=== PATIENT | male | born 1945 | race Caucasian/White ===

== ENCOUNTER 2020-04-24 01:11 | Outpatient (CLI) | payer MEDICARE, SELFPAY ==
[2020-04-24 18:29] LABS: SARS-CoV-2 RNA PCR Negative
== END 2020-04-24 01:12 | disposition home or self-care (01) ==
LOC: ANHCOVIDDT 01:12
PROVIDERS: PCP Family Medicine; Visit Provider Internal Medicine Gastroenterology
DX: Z01.812 Encounter for preprocedural laboratory examination (principal); Z11.59 Encounter for screening for other viral diseases
CPT/HCPCS: 87635; C9803; U0003

== ENCOUNTER 2020-04-26 04:13 | Day surgery (SDC) | payer MEDICARE, SELFPAY ==
[2020-04-17 12:36] VITALS: BMI 25.1
[2020-04-26 06:58] VITALS: BP 147/82; PULSE 68; RESP 22; TEMP 36.4; O2SAT 98; BMI 26.1
[2020-04-26] MEDS: LACTATED RINGERS 1,000 ML 150 ML IV CONT (07:22)
[2020-04-26 07:23] LABS: Glucose Point of Care 142 (65-105)
--- NOTE | 2020-04-26 07:32 | WPDANESEPPF ---
Anes - Initial Pre Proc Eval Procedure: Operation Date: 04/26/20 08:00 Proposed Procedures p Esophagogastroduodenoscopy - Feliciano Cortes MD Date/Time: 04/26/20 07:32 Surgeon: Feliciano Cortes MD Pre Op Diagnosis: barretts esophagus Patient Data Age: 75 Gender: M Height: 5 ft 8 in Weight: 78 kg Last Vital Signs Temp 97.6 F 04/26/20 06:58 Pulse 68 04/26/20 06:58 Resp 22 H 04/26/20 06:58 BP 147/82 H 04/26/20 06:58 Pulse Ox 98 04/26/20 06:58 Allergies Allergy/AdvReac Type Severity Reaction Status Date / Time No Known Allergies Allergy Verified 04/26/20 06:56 Home Medications Medication Instructions Recorded Confirmed Type amlodipine 5 mg PO DAILY 04/17/20 04/17/20 History indapamide 1.25 mg PO DAILY 04/17/20 04/17/20 History lisinopril 40 mg PO DAILY 04/17/20 04/17/20 History metformin 850 mg PO DAILY 04/17/20 04/17/20 History omeprazole 20 mg PO DAILY 04/17/20 04/17/20 History sertraline 50 mg PO DAILY 04/17/20 04/17/20 History simvastatin 10 mg PO DAILY 04/17/20 04/17/20 History tamsulosin 0.4 mg PO DAILY 04/17/20 04/17/20 History Laboratory Tests 04/26/20 07:20 POC Capillary Glucose 142 mg/dl H mg/dl (65-105) Patient hx anesthesia problems: none Family hx anesthesia problems: none PENDING SALE TO [facility] Past Medical History Medical History (Updated 04/26/20 @ 07:31 by Brendan Blankenship MD) Diabetes GERD (gastroesophageal reflux disease) Hyperlipidemia Hypertension Social History Social History Living arrangements: with family Anes - Eval Final PreProcedure Day of Procedure 04/26/20 07:32 Patient weight: overweight Heart: regular rate and rhythm Lungs: clear to auscultation Airway: Mallampati scale class II Neurological: alert and oriented Last oral intake: >/= 8 hours ASA classification: III Emergent: no Anesthetic plan: proceed Anesthesia type and monitoring: general GIVS and standard monitoring Informed Consent: The patient's anesthetic plan and its attendant risks and benefits were discussed with the patient/family/POA. Questions were solicited and answers provided to the satisfaction of the patient/family/POA.
--- NOTE | 2020-04-26 07:51 | WPDGICN ---
Assessment and Plan Assessment and plan (1) Tristan's esophagus: Code(s): K22.70 - Tristan's esophagus without dysplasia Status: Acute Assessment and Plan: Patient with stable Tristan's esophagus. Patient maintained on omeprazole 20 mg p.o. daily with good results. Plan is for surveillance EGD now on at 3 year intervals. (2) GERD (gastroesophageal reflux disease): Code(s): K21.9 - Gastro-esophageal reflux disease without esophagitis Status: Acute GI Consult Note Consult date/time: 04/26/20 07:51 HPI: uGs Owen Jr. is a 75 year old male Seen in evaluation at the request of Dr. Maxx Trevizo. Patient has a known history of GE reflux and Tristan's esophagus. He presents today for surveillance EGD. He states he has no heartburn as long as he takes PPI as prescribed. He denies dysphagia. He has had no weight loss or bleeding. Family history is noncontributory. 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 Review of Systems Review of Systems: All systems reviewed & are unremarkable except as noted in HPI and below PMFSH Past Medical History Medical History (Updated 04/26/20 @ 07:54 by Feliciano Cortes MD) Diabetes GERD (gastroesophageal reflux disease) Hyperlipidemia Hypertension Social History Social History Living arrangements: with family Meds Home Medications and Allergies Home Medications Medication Instructions Recorded Confirmed Type amlodipine 5 mg PO DAILY 04/17/20 04/17/20 History indapamide 1.25 mg PO DAILY 04/17/20 04/17/20 History lisinopril 40 mg PO DAILY 04/17/20 04/17/20 History metformin 850 mg PO DAILY 04/17/20 04/17/20 History omeprazole 20 mg PO DAILY 04/17/20 04/17/20 History sertraline 50 mg PO DAILY 04/17/20 04/17/20 History simvastatin 10 mg PO DAILY 04/17/20 04/17/20 History tamsulosin 0.4 mg PO DAILY 04/17/20 04/17/20 History Allergies Allergy/AdvReac Type Severity Reaction Status Date / Time No Known Allergies Allergy Verified 04/26/20 06:56 Vital Signs Vital Signs - 24 hr 04/26/20 06:58 Temperature 97.6 F Pulse Rate 68 Respiratory Rate 22 H Blood Pressure 147/82 H Pulse Oximetry 98 Exam Narrative: Exam Narrative: Physical exam reveals patient to be alert. Vital signs stable. HEENT exam unremarkable. Lungs are clear to auscultation and percussion. Heart is without murmur or extra sounds. Abdominal exam bowel sounds are present soft nontender with no organomegaly. Digital external rectal exam normal.
[2020-04-26] MEDS: BENZOCAINE (*SP) 60 ML SPRAY CAN (HURRICAINE) 1 SPRAY MUCOUS MEM (08:02)
[2020-04-26 08:22] VITALS: BP 131/80; PULSE 61; RESP 20; O2SAT 96
[2020-04-26 08:32] VITALS: BP 146/89; PULSE 60; RESP 18; O2SAT 97
[2020-04-26 08:41] LABS: Glucose Point of Care 140 (65-105)
[2020-04-26 08:42] VITALS: BP 155/91; PULSE 67; RESP 22; O2SAT 99
--- NOTE | 2020-04-26 09:09 | SUR.PHASEII ---
DR FRANKLIN IN TO SEE PT AT 0824. PT STILL SLEEPING. 0905 PT AWAKE, DRESSED, AND REQUESTING TO LEAVE PRIOR TO SPEAKING WITH DR FRANKLIN. PT HAS NO QUESTION OR CONCERNS. GIVEN DISCHARGE INSTRUCTION. STATES UNDERSTANDING. PT ADVISED TO CALL DR FRANKLIN'S OFFICE IF QUESTIONS ARISE.
== END 2020-04-26 09:10 | disposition home or self-care (01) ==
PROVIDERS: PCP Family Medicine; Visit Provider Internal Medicine Gastroenterology
PROC: 0DJ08ZZ Inspection of Upper Intestinal Tract, Via Natural or Artificial Opening Endoscopic (ICD-10-PCS; CPT 43235; principal; 2020-04-26 08:00)
DX: K21.9 Gastro-esophageal reflux disease without esophagitis (principal); K22.70 Barrett's esophagus without dysplasia; K31.7 Polyp of stomach and duodenum; I10 Essential (primary) hypertension; E78.5 Hyperlipidemia, unspecified; E11.9 Type 2 diabetes mellitus without complications; Z79.84 Long term (current) use of oral hypoglycemic drugs
CPT/HCPCS: 43239; 43251; 88305; J2704; J7120

== ENCOUNTER 2020-04-29 08:26 | Outpatient (CLI) | payer MEDICARE, SELFPAY ==
--- NOTE | ~2020-04-29 | MR_ITS ---
EXAMINATION: MR abdomen wo/w con DATE: 04/29/2020 10:12 INDICATION: Left kidney mass. TECHNIQUE: Magnetic resonance imaging (MRI) of the abdomen was performed without and with 14 mL Multi Dianne intravenous contrast. Sequences included coronal T2-weighted FS FSE, coronal and axial FIESTA F S, coronal LAVA-flex, axial LAVA, axial T2-weighted FSE, axial T1-weighted dual-echo FSPGR, axial STI R FSE, and axial DWI. Postcontrast sequences included coronal LAVA-flex and a time course of axial LA VA. COMPARISON: Abdomen MRI 04/24/2019, 04/12/18, CT abdomen and pelvis 12/22/16 FINDINGS: There is diffuse hepatic steatosis. There is a moderate-sized sliding hiatal hernia. There are change s of cholecystectomy. The spleen and adrenal glands are normal. There is dilatation of multiple pancr eatic duct sidechains. There are cystic lesions of the pancreas measuring up to 12 mm. There are simp le and hemorrhagic cysts in the kidneys measuring up to 2.7 cm on the left. There is a 1.8 cm hypoenh ancing mass in left kidney mid zone. There are no dilated loops of bowel. There are no pathologically enlarged lymph nodes. There is no free intraperitoneal fluid. IMPRESSION: 1. 1.8 cm hypoenhancing left kidney mass, unchanged in size from 12/22/2016, suspicious for renal cell carcinoma. 2. Stable cystic lesions of the pancreas measuring up to 12 mm. The differential diagnosis includes p seudocyst, intraductal papillary mucinous neoplasm (IPMN), mucinous cystic neoplasm (MCN), serous cys tadenoma, and neuroendocrine tumor. Abdomen MRI without and with contrast is recommended in two years . 3. Moderate-sized sliding hiatal hernia. Reviewed, dictated and finalized at location A. IMPRESSION: 1. 1.8 cm hypoenhancing left kidney mass, unchanged in size from 12/22/2016, kendra picious for renal cell carcinoma. 2. Stable cystic lesions of the pancreas measuring up to 12 mm. The differentia l diagnosis includes pseudocyst, intraductal papillary mucinous neoplasm (IPMN) , mucinous cystic neoplasm (MCN), serous cystadenoma, and neuroendocrine tumor. Abdomen MRI without and with contrast is recommended in two years. 3. Moderate-sized sliding hiatal hernia.
[2020-04-29 11:52] LABS: Estimated Glomerular Filt Rate > 60
== END 2020-04-29 08:27 | disposition home or self-care (01) ==
PROVIDERS: PCP Family Medicine; Visit Provider Urology
DX: N28.89 Other specified disorders of kidney and ureter (principal); K86.2 Cyst of pancreas; K44.9 Diaphragmatic hernia without obstruction or gangrene
CPT/HCPCS: 74183; A9577

== ENCOUNTER 2021-05-08 08:30 | Outpatient (CLI) | payer MEDICARE, SELFPAY ==
--- NOTE | ~2021-05-08 | MR_ITS ---
EXAMINATION: MR abdomen wo/w con DATE: 05/08/2021 09:39 INDICATION: Renal mass TECHNIQUE: Magnetic resonance imaging (MRI) of the abdomen was performed without and with 14 mL Multi leonarda intravenous contrast. Sequences included coronal T2-weighted SS-FSE, coronal and axial FS 2D-F IESTA, axial STIR FSE, axial T2-weighted SS-FSE, axial T2-weighted FS SS-FSE, axial diffusion-weighte d SE, axial dual-echo T1-weighted FSPGR, and axial and coronal T1-weighted LAVA. Postcontrast axial T 1-weighted LAVA images were obtained in a time course. Postcontrast coronal T1-weighted LAVA images w ere obtained. COMPARISON: 04/29/2020 and 12/28/2016 FINDINGS: Heart size is normal. No pericardial or pleural effusion. Small to moderate sized sliding-type hiatal hernia. Liver, spleen and bilateral adrenal glands are normal. Gallbladder is nonvisualized and like ly surgically absent. Again seen are multiple small mildly dilated pancreatic ductal side branches ar e there is also a chronic 8 mm T2 hyperintense nonenhancing cystic lesion at the body of the pancreas which is unchanged since 2017. Again seen are multiple nonenhancing bilateral renal cysts, several s imple appearing with T2 fluid signal intensity and a few likely proteinaceous/hemorrhagic with increa sed but slightly lower T2 signal intensity and increased T1 signal. Abutting one of the cysts in the mid left kidney is an unchanged 1.8 cm exophytic mildly enhancing mass concerning for renal cell carc inoma. No other enhancing renal lesions identified. Visualized portion of the bowels are normal. No p athologically enlarged abdominal lymphadenopathy. Normal bone marrow signal throughout. IMPRESSION: 1. No interval change in a 1.8 cm hypoenhancing left renal mass, unchanged since 12/22/2016 which adiel in suspicious for renal cell carcinoma. 2. Small to moderate-sized sliding-type hiatal hernia. 3. No change since 12/28/2016 in likely benign 8 mm cystic pancreatic lesion most likely a pseudocyst related to chronic pancreatitis given the mild dilation of multiple pancreatic ductal side branches. Correlate for clinical history of prior pancreatitis. Reviewed, dictated and finalized at location A. IMPRESSION: 1. No interval change in a 1.8 cm hypoenhancing left renal mass, unchanged sinc e 12/22/2016 which remain suspicious for renal cell carcinoma. 2. Small to moderate-sized sliding-type hiatal hernia. 3. No change since 12/28/2016 in likely benign 8 mm cystic pancreatic lesion mos t likely a pseudocyst related to chronic pancreatitis given the mild dilation o f multiple pancreatic ductal side branches. Correlate for clinical history of p rior pancreatitis.
[2021-05-08 09:01] LABS: Estimated Glomerular Filt Rate > 60
== END 2021-05-08 08:31 | disposition home or self-care (01) ==
PROVIDERS: PCP Family Medicine; Visit Provider Urology
DX: N28.89 Other specified disorders of kidney and ureter (principal); K44.9 Diaphragmatic hernia without obstruction or gangrene; K86.2 Cyst of pancreas
CPT/HCPCS: 74183; A9577

== ENCOUNTER 2023-02-05 15:48 | Outpatient (CLI) | payer MEDICARE, SELFPAY ==
--- NOTE | ~2023-02-05 | XR_ITS ---
EXAMINATION: XR chest 2V Exam Date/Time: 02/05/2023 15:55 CDT HISTORY: R05.9 - Cough, CONGESTION Comparison: 09/16/2016. RESULT: Lines, tubes, and devices: Cholecystectomy clips. Lungs and pleura: Mild biapical pleural scarring. Linear scar in the left upper lung. No focal conso lidation, effusion, or pneumothorax. Cardiomediastinal silhouette: Stable. Other: No acute osseous or upper abdominal finding. IMPRESSION: No acute cardiopulmonary process. Reviewed, dictated and finalized at location K.
[2023-02-05 16:34] LABS: Basophils Percent Auto 0.6 % (0.2-1.2); Eosinophils Absolute Auto 0.1 K/mm3 (0-0.3); Hemoglobin 10.3 g/dL (14.0-18.0); Immature Granulocyte Absolute 0.07 K/mm3 (0.00-0.031); Lymphocytes Absolute Auto 1.24 K/mm3 (0.9-3.2); Lymphocytes Percent Auto 17.5 % (18.3-44.2); Mean Corpuscular HGB Conc 31.2 g/dl (32-36); Mean Corpuscular Hemoglobin 25.6 pg (26-34); Mean Corpuscular Volume 82.1 fl (80-100); Mean Platelet Volume 11.1 fl (7.4-10.4); Monocytes Absolute Auto 0.4 K/mm3 (0.1-0.6); Monocytes Percent Auto 6.2 % (2.6-8.5); Neutrophils Absolute Auto 5.2 K/mm3 (1.3-6.7); Neutrophils Percent Auto 73.7 % (45.5-73.1); Platelet Count Result 224 k/mm3 (150-375); Red Blood Count 4.02 M/mm3 (4.6-6.20); Red Cell Distribution Width 16.4 % (11.5-14.5); White Blood Count 7.1 K/mm3 (4.5-10.0)
[2023-02-05 17:13] LABS: NT Pro B Type Natriuretic Pept 353 pg/mL (19.9-100)
[2023-02-05 17:46] LABS: Influenza A QL RT-PCR Negative (Negative); Influenza B QL RT-PCR Negative (Negative); RSV RNA, RT-PCR Negative (Negative); SARS-CoV-2 RNA PCR Negative (Negative)
== END 2023-02-05 15:49 | disposition home or self-care (01) ==
PROVIDERS: PCP Family Medicine; Visit Provider Family Medicine
DX: R05.9 Cough, unspecified (principal); Z20.822 Contact with and (suspected) exposure to COVID-19
CPT/HCPCS: 36415; 71046; 83880; 85025; 87637

== ENCOUNTER 2024-02-17 09:23 | Outpatient (CLI) | payer MEDICARE, SELFPAY ==
--- NOTE | ~2024-02-17 | CT_ITS ---
CT head without contrast Indication: Amnesia Technique: Serial scans were obtained through the brain without the administration of contrast. Dose reduction technique was used on this scan by utilizing automated exposure control and iterative recon struction technique. The dose-length product (DLP) was 674.51 mGy-cm. Findings: There is no evidence of intracranial hemorrhage, mass lesion, or acute infarct. The ventri cles and subarachnoid spaces are dilated, consistent with moderate atrophy. There is no evidence of edema, mass effect or midline shift. The visualized paranasal sinuses and mastoid air cells are devaughn ar. Impression: No intracranial hemorrhage, mass, or acute infarct. Moderate generalized atrophy. Reviewed, dictated and finalized at location . Impression: No intracranial hemorrhage, mass, or acute infarct. Moderate generalized atrophy.
== END 2024-02-17 09:24 ==
LOC: MICIMG 09:24
PROVIDERS: PCP Family Medicine; Visit Provider Physician Assistant
DX: R41.3 Other amnesia (principal); G31.9 Degenerative disease of nervous system, unspecified
CPT/HCPCS: 70450

== ENCOUNTER 2024-02-22 09:46 | Outpatient (CLI) | payer MEDICARE, SELFPAY ==
--- NOTE | ~2024-02-22 | MR_ITS ---
MRI of the abdomen: Clinical indication: Other specified disorders kidney and ureter. Technique: Coronal SSFSE ARC, WATER:coronal LAVA-FLEX, Coronal 2D FIESTA FatSat, Axial SSFSE BH ARC, Axial 3D DualEcho BH, Axial SSFSE-IR, Axial DWI b=500, Axial 2D FIESTA FatSat, pre and dynamic postco ntrast Axial LAVA ARC, postcontrast Coronal In and Opposed phase LAVA FLEX. Following intravenous adm inistration of 14 cc MultiHance gadolinium, T1-weighted fat-sat imaging was performed in the axial an d coronal planes. COMPARISON: 05/08/2021 Findings: Gallbladder absent. The common bile duct is unremarkable. No filling defects are seen withi n the CBD. No evidence of intrahepatic biliary ductal dilatation. The pancreatic duct is normal in si ze. Liver, spleen, and adrenal glands appear normal. Possible prior distal pancreatectomy. Simple bilater al renal cysts are present. There is an additional 1.8 cm right lower pole renal lesion anteriorly, w hich is T1 hyperintense, isointense to renal parenchyma on T2-weighted images, and demonstrates no si gnificant postcontrast enhancement, stable from prior exam. There is also a stable 1.8 cm exophytic l eft renal lesion (series 6 image 25), which is T2 hypointense, mildly T1 hyperintense, and demonstrat es probable hypoenhancement on postcontrast images relative to renal parenchyma. The aorta and the paraaortic regions appear normal. Moderate hiatal hernia noted. Impression: Stable 1.8 cm left renal lesion, which demonstrates mild enhancement, but is stable in size since 04/11. Stability is reassuring, and this could reflect a benign lesion versus very indolent neoplast ic lesion. Stable 1.8 cm right lower pole proteinaceous/hemorrhagic renal cyst. Additional bilateral simple sandi l cysts. Moderate hiatal hernia. Reviewed, dictated and finalized at location M. Impression: Stable 1.8 cm left renal lesion, which demonstrates mild enhancement, but is st able in size since 05/08/2021. Stability is reassuring, and this could reflect a benign lesion versus very indolent neoplastic lesion. Stable 1.8 cm right lower pole proteinaceous/hemorrhagic renal cyst. Additional bilateral simple renal cysts. Moderate hiatal hernia.
== END 2024-02-22 09:47 | disposition home or self-care (01) ==
PROVIDERS: PCP Family Medicine; Visit Provider Physician Assistant
DX: N28.89 Other specified disorders of kidney and ureter (principal); K44.9 Diaphragmatic hernia without obstruction or gangrene
CPT/HCPCS: 74183; A9577